=== PATIENT | female | born 1990 | race Two or more races ===

== ENCOUNTER 2023-03-06 12:45 | Inpatient (IN) | payer OTHER ==
[~2023-03-06] VITALS: Ht 152.4 cm; Wt 80.3 kg
[2023-03-06] MEDS ORDERED: ZYRTEC10 M3 PO (14:18)
[2023-03-12] MEDS ORDERED: COMPLETE NATAL1 EACH PO (09:00)
== END 2023-03-15 14:16 | disposition home or self-care (01) | DRG 788 ==
LOC: O/R 03-12 08:02 → OB/GYN 03-12 08:20
PROVIDERS: ADMIT Obstetrics & Gynecology Gynecology; ATTEND Obstetrics & Gynecology Gynecology
PROC: 4A1HXCZ Monitoring of Products of Conception, Cardiac Rate, External Approach (ICD-10-PCS; 2023-03-12)
PROC: 10D00Z1 Extraction of Products of Conception, Low, Open Approach (ICD-10-PCS; principal; 2023-03-12 08:20)
DX: O34.211 Maternal care for low transverse scar from previous cesarean delivery (principal); Z3A.39 39 weeks gestation of pregnancy; Z37.0 Single live birth; Z20.822 Contact with and (suspected) exposure to COVID-19